=== PATIENT | female | born 1965 | race Caucasian/White ===

== ENCOUNTER 2022-02-19 13:37 | Emergency (ER) | payer BC ==
[~2022-02-19] VITALS: Ht 162.6 cm; Wt 80.4 kg
[2022-02-19] MEDS ORDERED: SYMBICORT 16010.2 GM INH (13:59)
[2022-02-19] MEDS ORDERED: SINGULAIR10 MG PO (13:59)
[2022-02-19] MEDS ORDERED: ALBUTEROL0.63 MG/3 NEB (13:59)
[2022-02-19] MEDS ORDERED: FAMOTIDINE 20 MG/2 ML VIAL IV STA (14:06)
[2022-02-19] MEDS ORDERED: DIPHENHYDRAMINE HCL INJ 50 MG/ML VIAL IV ONE (14:15)
[2022-02-19] MEDS ORDERED: METHYLPREDNISOLONE SOD SUCC 125 MG/2ML VIAL IV ONE (14:15)
[2022-02-19] MEDS ORDERED: FAMOTIDINE 20 MG/2 ML VIAL IV ONE (14:28)
[2022-02-19] MEDS ORDERED: DIPHENHYDRAMINE HCL INJ 50 MG/ML VIAL ONE (14:28)
[2022-02-19] MEDS ORDERED: SODIUM CHLORIDE 0.9% 1000ML 1,000 ML IV SCH (14:30)
[2022-02-19] MEDS ORDERED: METHYLPREDNISOLONE SOD SUCC 125 MG/2ML VIAL ONE (14:33)
== END 2022-02-19 15:08 | disposition home or self-care (01) ==
LOC: FSED 13:44
DX: L27.1 Localized skin eruption due to drugs and medicaments taken internally (principal); T36.5X5A Adverse effect of aminoglycosides, initial encounter; T37.3X5A Adverse effect of other antiprotozoal drugs, initial encounter; C18.9 Malignant neoplasm of colon, unspecified; J44.9 Chronic obstructive pulmonary disease, unspecified
CPT/HCPCS: 96374; 96375; 99283; J1200; J2930

== ENCOUNTER 2022-08-09 20:48 | Emergency (ER) | payer BC ==
[~2022-08-09] VITALS: Ht 162.6 cm; Wt 80.3 kg
[~2022-08-09 20:48] MED LIST: ALBUTEROL0.63 MG/3 NEB; SINGULAIR10 MG PO; SYMBICORT 16010.2 GM INH
[2022-08-09] MEDS ORDERED: METHYLPREDNISOLONE SOD SUCC 125 MG/2ML VIAL ONE (21:41)
[2022-08-09] MEDS ORDERED: METHYLPREDNISOLONE SOD SUCC 125 MG/2ML VIAL IV ONE (21:45)
[2022-08-09] MEDS ORDERED: ALBUTEROL SULF 0.083% NEB SOLN 3 ML NEB NEB ONE (21:45)
[2022-08-09] MEDS ORDERED: IPRATROPIUM BROMIDE 0.02% 2.5 ML NEB NEB ONE (22:00)
[2022-08-10] MEDS ORDERED: MEDROL4 M2 PO (00:16)
== END 2022-08-10 00:28 | disposition home or self-care (01) ==
LOC: ER 21:00
DX: R06.02 Shortness of breath (principal); J44.1 Chronic obstructive pulmonary disease with (acute) exacerbation; Z85.038 Personal history of other malignant neoplasm of large intestine
CPT/HCPCS: 71046; 94640; 94799; 99283; J2930

== ENCOUNTER 2024-06-02 05:19 | Inpatient (IN) | payer BC, OTHER ==
[~2024-06-02] VITALS: Ht 162.6 cm; Wt 79.8 kg
[2024-06-02] VITALS (14 sets, daily range): BP systolic 95–122; BP diastolic 71–78; PULSE 75–88; RESP 18–24; TEMP 98.1–98.5; O2SAT 91–100
[~2024-06-02 05:19] MED LIST changes: +ALBUTEROL2.5 MG/3 M INH; +CEFDINIR300 MG PO; +DOXYCYCLINE HY100 MG PO; +IPRAT-ALBUT 0.5-3 ML INH; +MEDROL4 M2 PO; +NASACORT16.9 ML; +NEO-SYNEPHRINE15 M1; +PREDNISONE20 MG PO
[2024-06-02 05:44] LABS: BASOPHILS % 0.1 % (0.0-1.0); HEMATOCRIT 33.8 % (34.2-44.1); HEMOGLOBIN 10.8 g/dL (12.0-16.0); LYMPHOCYTES # (AUTO) 0.7 (1.0-3.2); LYMPHOCYTES % 8.6 % (18.0-39.1); MEAN CORPUSCULAR HEMOGLOBIN 27.4 pg (28-32); MEAN CORPUSCULAR VOLUME 85.8 fL (81-99); MONOCYTES # (AUTO) 0.9 (0.2-0.8); MONOCYTES % 10.3 % (4.4-11.3); NEUTROPHILS # (AUTO) 6.8 (2.1-6.9); NEUTROPHILS % 80.5 % (38.7-80.0); PLATELET COUNT 173 x10e3/uL (140-360); RED BLOOD COUNT 3.94 x10e6/uL (3.6-5.1); RED CELL DISTRIBUTION WIDTH 15.8 % (11.7-14.4); WHITE BLOOD COUNT 8.45 x10e3/uL (4.8-10.8)
[2024-06-02] MEDS: METHYLPREDNISOLONE SOD SUCC 125 MG/2ML VIAL IV ONE (05:49)
[2024-06-02] MEDS: ALBUTEROL/IPRATROPIUM 3 ML NEB NEB ONE ×2 (05:52→07:59)
[2024-06-02 05:53] LABS: CORONAVIRUS COVID-19 AG NEGATIVE (NEGATIVE); INFLUENZA A AG NEGATIVE (NEGATIVE); INFLUENZA B AG NEGATIVE (NEGATIVE)
[2024-06-02 06:03] LABS: STREPTOCOCCUS GRP A ANTIGEN NEGATIVE (NEGATIVE)
[2024-06-02 06:10] LABS: ALBUMIN 3.7 g/dL (3.5-5.0); ALBUMIN/GLOBULIN RATIO 1.2 (0.8-2.0); ANION GAP 16.3 mmol/L (8-16); BILIRUBIN,TOTAL 0.9 mg/dL (0.2-1.2); CALCIUM 9.7 mg/dL (8.4-10.2); CREATININE, SERUM 1.12 mg/dL (0.57-1.11); POTASSIUM 4.3 mmol/L (3.5-5.1); TOTAL PROTEIN 6.7 g/dL (6.5-8.1)
[2024-06-02] MEDS ORDERED: ONDANSETRON HCL INJ 2MG/ML 2ML 2 MG/ML VIAL IV PRN (07:30)
[2024-06-02] MEDS: SODIUM CHLORIDE 0.9% 1000ML 1,000 ML IV ONE (07:45)
[2024-06-02] MEDS ORDERED: METOPROLOL TARTRATE INJ 1 MG/ML VIAL IV PRN (08:00)
[2024-06-02] MEDS ORDERED: DOCUSATE SODIUM 100 MG CAP PO PRN (08:00)
[2024-06-02] MEDS: NICOTINE 21 MG/EA PATCH TOP SCH (08:47)
[2024-06-02] MEDS: BENZONATATE 100 MG CAP PO SCH (08:47)
[2024-06-02] MEDS ORDERED: NICOTINE 14 MG/EA PATCH TOP SCH (09:00)
[2024-06-02] MEDS ORDERED: OMEPRAZOLE40 MG PO (09:53)
[2024-06-02] MEDS ORDERED: BUPROPION HCL150 M2 PO (09:53)
[2024-06-02] MEDS ORDERED: CARVEDILOL12.5 MG PO (09:53)
[2024-06-02] MEDS ORDERED: ROSUVASTATIN CA20 MG PO (09:53)
[2024-06-02] MEDS ORDERED: MONTELUKAST SOD10 MG PO (09:53)
[2024-06-02] MEDS ORDERED: ASPIRIN EC81 MG PO (09:53)
[2024-06-02] MEDS: MONTELUKAST SODIUM 10 MG TAB PO SCH (10:27)
[2024-06-02] MEDS: LORATADINE 10 MG TAB PO SCH (10:27)
[2024-06-02] MEDS: ALBUTEROL/IPRATROPIUM 3 ML NEB NEB SCH (11:06)
[2024-06-02] MEDS ORDERED: FLUTICASONE-SA1 EAC1 INH (11:22)
[2024-06-02] MEDS: METHYLPREDNISOLONE SOD SUCC 125 MG/2ML VIAL IV SCH (12:54)
[2024-06-02 13:23] LABS: CREATINE KINASE 532 IU/L (29-168)
[2024-06-02 13:39] LABS: TROPONIN I < 0.001 ng/mL (0-0.300)
[2024-06-02] MEDS ORDERED: CHLORASEPTIC SPRAY 177 ML BTL MM SCH (14:00)
[2024-06-02] MEDS: CHLORASEPTIC SPRAY 177 ML BTL MM SCH (15:38)
[2024-06-02] MEDS: CARVEDILOL 12.5 MG TAB PO SCH (16:43)
[2024-06-02] MEDS: ENOXAPARIN SOD INJ 40 MG/0.4 ML SYR SC SCH (16:43)
[2024-06-02] MEDS: BUPROPION HCL SR 150 MG TAB PO SCH (16:43)
[2024-06-02] MEDS: FAMOTIDINE 20 MG TAB PO SCH (16:43)
[2024-06-02] MEDS ORDERED: SALMETEROL XINAF/FLUTICASONE 250/50 MCG INHALER INH SCH (17:00)
[2024-06-02] MEDS: BUDESONIDE 0.5MG/2 ML NEB INH SCH (19:26)
[2024-06-02] MEDS: MELATONIN 3 MG TAB PO PRN (20:58)
[2024-06-02] MEDS: GUAIFENESIN/DEXTROMETHORPHAN LIQD 5 ML UDC NG PRN (20:58)
[2024-06-02] MEDS: ACETAMINOPHEN 325 MG TAB PO PRN (20:59)
[2024-06-03] VITALS (15 sets, daily range): BP systolic 99–127; BP diastolic 58–80; PULSE 66–77; RESP 18–21; TEMP 97.5–98.4; O2SAT 92–98
[2024-06-03 07:25] LABS: BASOPHILS % 0.1 % (0.0-1.0); EOSINOPHILS % 0.1 % (0.0-6.0); HEMATOCRIT 30.1 % (34.2-44.1); HEMOGLOBIN 9.5 g/dL (12.0-16.0); LYMPHOCYTES # (AUTO) 0.7 (1.0-3.2); LYMPHOCYTES % 9.5 % (18.0-39.1); MEAN CORPUSCULAR HEMOGLOBIN 27.9 pg (28-32); MEAN CORPUSCULAR HGB CONC 31.6 g/dL (31-35); MEAN CORPUSCULAR VOLUME 88.5 fL (81-99); MONOCYTES # (AUTO) 0.4 (0.2-0.8); MONOCYTES % 5.9 % (4.4-11.3); NEUTROPHILS # (AUTO) 5.7 (2.1-6.9); PLATELET COUNT 136 x10e3/uL (140-360); RED CELL DISTRIBUTION WIDTH 15.9 % (11.7-14.4); WHITE BLOOD COUNT 6.82 x10e3/uL (4.8-10.8)
[2024-06-03 07:48] LABS: ALBUMIN 3.1 g/dL (3.5-5.0); ANION GAP 12.7 mmol/L (8-16); BILIRUBIN,TOTAL 0.6 mg/dL (0.2-1.2); CHOL/HDL RATIO 2.5 (3.0-3.6); CREATININE, SERUM 0.88 mg/dL (0.57-1.11); POTASSIUM 4.7 mmol/L (3.5-5.1); TOTAL PROTEIN 6.2 g/dL (6.5-8.1)
[2024-06-03 08:05] LABS: CREATINE KINASE 363 IU/L (29-168)
[2024-06-03 08:19] LABS: TROPONIN I < 0.001 ng/mL (0-0.300)
[2024-06-03] MEDS: MONTELUKAST SODIUM 10 MG TAB PO SCH (09:18)
[2024-06-03] MEDS: ASPIRIN 81 MG ENTERIC COATED PO SCH (09:19)
[2024-06-03] MEDS: CRESTOR 10MG PO SCH (09:20)
[2024-06-03] MEDS ORDERED: ALBUTEROL 90 MCG/ACT INHALER INH PRN (12:00)
[2024-06-03] MEDS: METHYLPREDNISOLONE SOD SUCC 40 MG/ML VIAL 1ML IV SCH (20:31)
[2024-06-04] VITALS (12 sets, daily range): BP systolic 134–153; BP diastolic 68–95; PULSE 64–82; RESP 2–22; TEMP 97.7–98; O2SAT 93–99
[2024-06-04 06:39] LABS: ANION GAP 13.4 mmol/L (8-16); CALCIUM 8.7 mg/dL (8.4-10.2); CREATININE, SERUM 0.84 mg/dL (0.57-1.11); POTASSIUM 4.4 mmol/L (3.5-5.1)
[2024-06-05] VITALS (9 sets, daily range): BP systolic 117–132; BP diastolic 72–80; PULSE 65–77; RESP 17–20; TEMP 97.7–98.6; O2SAT 93–100
[2024-06-05] MEDS ORDERED: NICODERM CQ1 EAC2 TOP (07:47)
[2024-06-05] MEDS ORDERED: BENZONATATE100 MG PO (07:47)
[2024-06-05] MEDS ORDERED: PREDNISONE20 MG PO (07:47)
[2024-06-05] MEDS ORDERED: LORATADINE10 MG PO (07:47)
[2024-06-05] MEDS: METHYLPREDNISOLONE SOD SUCC 40 MG/ML VIAL 1ML IV SCH (08:49)
[2024-06-06] MEDS ORDERED: PREDNISONE 20 MG TAB PO SCH (09:00)
== END 2024-06-05 14:00 | disposition home or self-care (01) | DRG 190 ==
LOC: ER 05:29 → ERHOLD 07:31 → MED/SURG3 09:50
PROVIDERS: ADMIT Internal Medicine; ATTEND Internal Medicine
DX: J44.1 Chronic obstructive pulmonary disease with (acute) exacerbation (principal); J96.01 Acute respiratory failure with hypoxia; M62.82 Rhabdomyolysis; E87.1 Hypo-osmolality and hyponatremia; N17.9 Acute kidney failure, unspecified; J98.11 Atelectasis; J44.0 Chronic obstructive pulmonary disease with (acute) lower respiratory infection; Z99.81 Dependence on supplemental oxygen; J22 Unspecified acute lower respiratory infection; I10 Essential (primary) hypertension; K21.9 Gastro-esophageal reflux disease without esophagitis; E78.5 Hyperlipidemia, unspecified; F41.9 Anxiety disorder, unspecified; Z11.52 Encounter for screening for COVID-19; E66.9 Obesity, unspecified; Z68.30 Body mass index [BMI] 30.0-30.9, adult; Z79.52 Long term (current) use of systemic steroids; Z79.51 Long term (current) use of inhaled steroids; Z85.038 Personal history of other malignant neoplasm of large intestine; Z90.49 Acquired absence of other specified parts of digestive tract; Z90.711 Acquired absence of uterus with remaining cervical stump; Z92.21 Personal history of antineoplastic chemotherapy; Z88.1 Allergy status to other antibiotic agents; Z88.5 Allergy status to narcotic agent; F17.210 Nicotine dependence, cigarettes, uncomplicated; Z83.6 Family history of other diseases of the respiratory system
CPT/HCPCS: 36415; 71045; 80048; 80053; 80061; 82550; 83518; 83880; 84484; 85025; 87040; 87070; 93005; 93306; 94640; 94799; 99284; J1650; J2919; J7030; J7050